=== PATIENT | male | born 2000 | race Caucasian/White ===

== ENCOUNTER 2022-10-02 10:42 | Emergency (ER) | payer BC ==
[2022-10-02] MEDS ORDERED: Lidocaine 1% 20 ML MDV ONE (11:09)
[2022-10-02] MEDS ORDERED: Diphtheria,Pertussis(Acell),Tetanus Vaccine 0.5 ML Syringe IM ONE (11:10)
[2022-10-02] MEDS ORDERED: Lidocaine 1% 20 ML MDV INJECT ONE (11:10)
== END 2022-10-02 12:00 | disposition home or self-care (01) ==
LOC: KA.ED 10:42
DX: S61.211A Laceration without foreign body of left index finger without damage to nail, initial encounter (principal); Z23 Encounter for immunization; W26.0XXA Contact with knife, initial encounter
CPT/HCPCS: 12004; 90471; 90715; 99282-25; 99283; J3490